=== PATIENT | female | born 1955 | race Two or more races ===

== ENCOUNTER → 2024-01-31 | Outpatient (CLI) | payer MEDICARE, SELFPAY ==
[2024-01-31 10:49] LABS: Albumin, Serum 4.3 gm/dL (3.4-4.8); Anion Gap 7 (7-16); BUN/Creatinine Ratio 19 Ratio (12-20); Blood Urea Nitrogen 15 mg/dL (9-23); Calcium 9.5 mg/dL (8.3-10.6); Calcium (Corrected) 9.5 mg/dL (8.5-10.1); Carbon Dioxide 25.2 mMol/L (20.0-31.0); Chloride 109 mMol/L (98-107); Creatinine (Component) 0.8 mg/dL (0.6-1.3); Glucose 111 mg/dL (74-106); Osmolality,Calculated 283 (275-295); Phosphorous 3.2 mg/dL (2.4-5.1); Potassium 3.6 mMol/L (3.4-5.1); Sodium 141 mMol/L (136-145); eGFR > 60 See Note
[2024-01-31 10:53] LABS: Creatinine MALB Rnd Ur 96 mg/dL (30-125); Microalbumin Creat Ratio 228 mg/gCrea (<30); Microalbumin, Random Urine 219 mg/L (0-300)
[2024-01-31 11:13] LABS: Glucose Estimated Average 120 mg/dL (80-131); Hemoglobin A1C 5.8 % Hgb (4.8-6.0)
== END | disposition home or self-care (01) ==
LOC: COPL 09:29
PROVIDERS: PCP Internal Medicine; Referring Provider Internal Medicine; Visit Provider Internal Medicine
DX: E11.9 Type 2 diabetes mellitus without complications (principal); I10 Essential (primary) hypertension
CPT/HCPCS: 36415; 80069; 82043; 82570; 83036

== ENCOUNTER → 2024-05-31 | Outpatient (CLI) | payer MEDICARE, SELFPAY ==
--- NOTE | 2024-05-31 14:30 | XR_ITS ---
Examination: Screening digital mammography, bilateral Computer aided detection 3-D breast Tomosynthesis, bilateral Date and time of exam: May 31, 2024 1337 hours Compared to mammograms dating to July 30, 2009 Indication: Screening Technique: Nonmagnified MLO, CC views of the breasts to been obtained, reconstructed from 3-D Tomosynthesis images. R2 computer aided detection program utilized for evaluation of suspicious masses and/or abnormal calcifications. 3-D Tomosynthesis images obtained. Findings: Scattered areas of fibroglandular density Skin lesions left breast Benign calcifications No interval suspicious masses Impression: BI-RADS category II: Benign Findings. Recommend 1 year follow-up mammogram.
== END | disposition home or self-care (01) ==
LOC: CDIM 13:51
PROVIDERS: Referring Provider Internal Medicine; Visit Provider Internal Medicine
DX: Z12.31 Encounter for screening mammogram for malignant neoplasm of breast (principal); R92.323 Mammographic fibroglandular density, bilateral breasts; R92.1 Mammographic calcification found on diagnostic imaging of breast
CPT/HCPCS: 77063; 77067

== ENCOUNTER 2024-06-08 08:15 | Day surgery (SDC) | payer MEDICARE, SELFPAY ==
[2024-06-07 11:46] VITALS: BMI 37.5
[2024-06-07 13:29] LABS: Alanine Aminotransferase 15 U/L (10-49); Albumin, Serum 4.3 gm/dL (3.4-4.8); Albumin/Globulin Ratio 1.4 (1.2-2.2); Alkaline Phosphatase 89 U/L (46-116); Anion Gap 8 (7-16); Aspartate Amino Transferase 23 U/L (0-34); BUN/Creatinine Ratio 9 Ratio (12-20); Bilirubin,Total 1.2 mg/dL (0.3-1.2); Blood Urea Nitrogen 7 mg/dL (9-23); Calcium 9.5 mg/dL (8.3-10.6); Calcium (Corrected) 9.5 mg/dL (8.5-10.1); Carbon Dioxide 24.3 mMol/L (20.0-31.0); Chloride 106 mMol/L (98-107); Creatinine (Component) 0.8 mg/dL (0.6-1.3); Estimated Creatinine Clearance 64.3 mL/min (>60); Globulin 3.1 gm/dL (2.3-3.5); Glucose 100 mg/dL (74-106); Osmolality,Calculated 273 (275-295); Sodium 138 mMol/L (136-145); Total Protein 7.4 gm/dL (5.7-8.2); eGFR > 60 See Note
[2024-06-08] VITALS (10 sets, daily range): BP systolic 138–159; BP diastolic 71–98; PULSE 62–68; RESP 12–22; TEMP 36.1–37.1; O2SAT 94–97; BMI 36.8
--- NOTE | 2024-06-08 10:25 | ESOP_ITS ---
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 Findings Normal anatomy of the nasopharynx. The tympanic membrane had approximately 3 mm inferior perforation that was dry. The long process of the incus was eroded as before. The incostapedial joint was intact and mobile. 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 Patient wished to have a revision performed. This time we added the eustachian tube dilation with hopes of having greater success as well as using a tragal cartilage graft. The procedure risks were explained in detail as well as anticipated outcomes and the patient wished to proceed. Patient was marked and shaved in preoperative setting and transferred to the operative suite where she was anesthetized and intubated. Timeout was performed. The right nasal passage was visualized with the 0 degree endoscope after applying Afrin nasal spray. The eustachian tube orifice was visualized. The balloon dilator was then carefully inserted and the balloon guided up into the eustachian tube up to just short of the 2 cm vanessa. The balloon was then inflated in usual fashion for 2 minutes then removed. Patient was then sterilely prepped and draped in the right ear canal was injected with 1% lidocaine with 1 100,000 dilution epinephrine. Approximately 2 cc total were used. Canal was irrigated with warm saline solution and suctioned after removal of cerumen. The perforation was visualized as noted above. The margins of the perforation were prepped with the third millimeter hook pulling back the squamous epithelium from the margins. 11 blade was then used to make an incision on the tragus soft tissue was elevated off of the cartilage and approximately a 4 mm section of cartilage was removed with the 11 blade with the perichondrium intact. The graft was then scored almost entirely around to create a lip for the tympanic membrane to slide into. Under microscopic visu alization then the graft was placed into the perforation. Posterior tympanomeatal flap was then elevated to visualized from the underneath surface. The graft was slightly repositioned in a better position. The ossicular chain was visualized and noted above. The drum was then turned back to its normal position. The graft positioning was checked 1 more time. Surgifoam dipped in saline was then placed on top of the graft and the tympanomeatal flap. Polysporin ointment was then placed over the packing and Dermabond used to close the incision on the tragus. A sterile cottonball was placed in the external auditory meatus and the patient was awakened and taken recovery room in stable condition Anesthesia GETA Pathology / specimen None Estimated Blood Loss 1 Surgeon Vanessa Diez DO Surgical Staff Operation Date: 06/08/24 11:45 Case Staff Anesthesiologist: Jaydon Christine
--- NOTE | 2024-06-08 10:30 | SUR.PHASEI ---
pt received from OR in recovery bay 4. pt asleep but responds to voice, breathing unlabored on 8l oxymask. v/s stable. pt dressing to right ear cdi. report received from Donal WILDE and Dr. Christine.
--- NOTE | 2024-06-08 12:15 | SUR.PHASEII ---
pt able to tolerate oral fluids without difficulty swallowing or nausea/vomiting.
--- NOTE | 2024-06-08 12:29 | SUR.PHASEII ---
pt awake and alert, breathing unlabored on room air. v/s stable. pt dressing to right ear cdi. pt able to ambulate to wheelchair with steady gait. d/c instructions given with brother Vladislav in room, all questions answered. pt d/c via wheelchair with all belongings.
== END 2024-06-08 12:29 | disposition home or self-care (01) ==
PROVIDERS: PCP Internal Medicine; Referring Provider Otolaryngology; Visit Provider Otolaryngology
PROC: (CPT 69631; principal; 2024-06-08 11:30)
PROC: (CPT 69420; 2024-06-08 11:30)
DX: H72.91 Unspecified perforation of tympanic membrane, right ear (principal); H90.6 Mixed conductive and sensorineural hearing loss, bilateral
CPT/HCPCS: 69631; 69705; 36415; 80053; A4217; A4649; C1726; J0171; J0690; J2250; J2371; J2405; J2704; J2765; J3010; J3473; J3490; A9270

== ENCOUNTER → 2024-06-26 | Outpatient (CLI) | payer MEDICARE, SELFPAY ==
[2024-06-26 09:42] LABS: Collection Type, Urine Clean Catch; RBC,Urine 0 /hpf (0-3)
[2024-06-26 10:41] LABS: Basophils % (Auto) 1 % (0-2.5); Eosinophils # (Auto) 0.1 Thou/mm3 (0.0-0.5); Eosinophils % (Auto) 1 % (0-10); Hematocrit 43.6 % (36.0-46.0); Hemoglobin 14.4 g/dL (12.0-16.0); Immature Granulocytes % (Auto) 0 % (0-0); Immature Granulocytes Auto 0.01 Thou/mm3 (0.00-0.00); Lymphocytes % (Auto) 47 % (10-50); Mean Corpuscular Hemoglobin 31.3 pg (25.0-35.0); Mean Corpuscular Volume 95 fL (80-100); Monocytes # (Auto) 0.4 Thou/mm3 (0.0-0.8); Monocytes % (Auto) 9 % (0-12); Neutrophils # (Auto) 1.7 Thou/mm3 (1.8-7.7); Neutrophils % (Auto) 41 % (37-80); Nucleated Red Blood Cell % 0 /100 WBC (0); Platelet Count 245 Thou/mm3 (140-440); RDW Standard Deviation 48.5 fL (36.4-46.3); White Blood Count 4.2 Thou/mm3 (3.6-11.0)
[2024-06-26 10:53] LABS: Alanine Aminotransferase 12 U/L (10-49); Albumin, Serum 4.3 gm/dL (3.4-4.8); Albumin/Globulin Ratio 1.5 (1.2-2.2); Alkaline Phosphatase 88 U/L (46-116); Anion Gap 7 (7-16); Aspartate Amino Transferase 17 U/L (0-34); BUN/Creatinine Ratio 17 Ratio (12-20); Bilirubin,Total 1.3 mg/dL (0.3-1.2); Blood Urea Nitrogen 15 mg/dL (9-23); Calcium 9.6 mg/dL (8.3-10.6); Calcium (Corrected) 9.6 mg/dL (8.5-10.1); Carbon Dioxide 28.4 mMol/L (20.0-31.0); Cardiac Risk Estimate 1.9 RATIO (3.7-5.6); Chloride 109 mMol/L (98-107); Cholesterol 136 mg/dL (132-200); Creatinine (Component) 0.9 mg/dL (0.6-1.3); Globulin 2.9 gm/dL (2.3-3.5); Glucose 105 mg/dL (74-106); HDL Cholesterol 70 mg/dL (40-60); LDL Cholesterol,Calculated 46 mg/dL (0-130); Osmolality,Calculated 287 (275-295); Potassium 3.8 mMol/L (3.4-5.1); Sodium 144 mMol/L (136-145); Thyroid Stimulating Hormone 1.05 uIU/mL (0.55-4.78); Total Protein 7.2 gm/dL (5.7-8.2); Triglycerides 100 mg/dL (30-150); eGFR > 60 See Note
[2024-06-26 10:56] LABS: Vitamin B12 500 pg/mL (211-911); Vitamin D 25 Hydroxy Total 31.1 ng/mL (7.3-40.2)
[2024-06-26 11:20] LABS: Glucose Estimated Average 123 mg/dL (80-131); Hemoglobin A1C 5.9 % Hgb (4.8-6.0)
[2024-06-26 11:22] LABS: Bilirubin,Urine Negative (Negative); Blood,Urine Negative (Negative); Calcium Oxalate Crystals,Urine 4+; Color,Urine Lt-Yellow (Lt Yel-Yel); Glucose, Urine Negative (Negative); Ketones,Urine Negative (Negative); Leukocyte Esterase,Urine Negative (Negative); Nitrite,Urine Negative (Negative); Protein,Urine Trace (Neg - Trace); Specific Gravity,Urine 1.018 (1.001-1.035); Squamous Epithelial Cell,Urine 2 /hpf (0-5); Urobilinogen,Urine Negative mg/dL (0.0-1.0); WBC,Urine 2 /hpf (0-5)
[2024-06-26 11:45] LABS: Clarity,Urine Hazy (Clear/Hazy)
[2024-06-26 12:09] LABS: Creatinine MALB Rnd Ur 88 mg/dL (30-125); Microalbumin Creat Ratio 97 mg/gCrea (<30); Microalbumin, Random Urine 85 mg/L (0-300)
== END | disposition home or self-care (01) ==
LOC: COPL 08:54
PROVIDERS: PCP Internal Medicine; Referring Provider Internal Medicine; Visit Provider Internal Medicine
DX: E11.9 Type 2 diabetes mellitus without complications (principal); I10 Essential (primary) hypertension; E78.5 Hyperlipidemia, unspecified
CPT/HCPCS: 36415; 80053; 80061; 81001; 82043; 82306; 82570; 82607; 83036; 84443; 85025

== ENCOUNTER 2024-11-16 06:35 | Day surgery (SDC) | payer MEDICARE, SELFPAY ==
[2024-11-16] VITALS (13 sets, daily range): BP systolic 118–155; BP diastolic 66–93; PULSE 59–67; RESP 12–24; TEMP 36.4–36.7; O2SAT 92–99; BMI 35.9
[2024-11-16] MEDS: SODIUM CHLORIDE 0.9% 500 ML 500 ML 100 ML IV (07:42)
[2024-11-16] MEDS: fentaNYL CIT INJ 50 mCg/ML AMP 2ML (ASD USE ONLY) IVP (07:48)
[2024-11-16] MEDS: MIDAZOLAM INJ 1 MG/ML VIAL 2 ML (ASD USE ONLY) 2 MG IVP (07:48)
== END 2024-11-16 08:45 | disposition home or self-care (01) ==
PROVIDERS: PCP Internal Medicine; Referring Provider Surgery; Visit Provider Surgery
PROC: 0DBE8ZX Excision of Large Intestine, Via Natural or Artificial Opening Endoscopic, Diagnostic (ICD-10-PCS; CPT 45380; principal; 2024-11-16 07:30)
DX: Z12.11 Encounter for screening for malignant neoplasm of colon (principal); Z85.048 Personal history of other malignant neoplasm of rectum, rectosigmoid junction, and anus; D12.2 Benign neoplasm of ascending colon; K63.89 Other specified diseases of intestine; Z93.3 Colostomy status; M19.90 Unspecified osteoarthritis, unspecified site; J45.909 Unspecified asthma, uncomplicated; E11.9 Type 2 diabetes mellitus without complications; E78.00 Pure hypercholesterolemia, unspecified; I10 Essential (primary) hypertension; E03.9 Hypothyroidism, unspecified
CPT/HCPCS: 44389; A4217; A4649; J1200; J2250; J3010; J7999

== ENCOUNTER → 2025-03-02 | Outpatient (CLI) | payer MEDICARE, SELFPAY ==
--- NOTE | 2025-03-02 15:13 | XR_ITS ---
EXAMINATION: Mandible series 5 views TECHNIQUE: [facility] Zuluaga[facility] Date and time: March 02 2025, 1534 hours INDICATIONS: Patient fell today with injury to the mandible left-sided jaw pain. FINDINGS: Severe osteopenia No acute fracture Body of the mandible and condyles appear intact IMPRESSION: No acute mandible fracture visualized If pain persists, consider CT maxillofacial study without contrast follow-up
== END | disposition home or self-care (01) ==
LOC: CDIM 15:05
PROVIDERS: PCP Internal Medicine; Referring Provider Emergency Medicine; Visit Provider Emergency Medicine
DX: S09.93XA Unspecified injury of face, initial encounter (principal); W19.XXXA Unspecified fall, initial encounter
CPT/HCPCS: 70110